=== PATIENT | male | born 1990 | race Hispanic/Latino ===

== ENCOUNTER 2019-04-05 21:16 | Emergency (ER) | payer SELFPAY ==
[~2019-04-05] VITALS: Ht 160 cm; Wt 65.0 kg
[2019-04-05 22:21] LABS: HEMATOCRIT 45.8 % (39.0-50.0); HEMOGLOBIN 15.4 g/dl (14.0-18.0); IMMATURE GRANULOCYTES 0.2 % (0.0-5.0); MEAN CELL VOLUME 92.5 fL CALC (80.0-100.0); MEAN CORPUSCULAR HGB 31.1 pG CALC (26.0-32.0); MEAN CORPUSCULAR HGB CONC 33.6 g/L CALC (32.0-36.0); NEUT# 7.05 thou/uL (1.82-7.42); RED BLOOD COUNT 4.95 mill/uL (4.70-6.10); RED CELL DISTRI WIDTH 12.7 % (11.5-15.5)
[2019-04-05 22:40] LABS: ALBUMIN 4.7 g/dL (3.2-5.0); ALKALINE PHOSPHATASE 134 u/l (38-126); ANION GAP 16 (6-22 (CALC)); BILIRUBIN, TOTAL 0.4 mg/dL (0.0-1.4); BUN 13 mg/dL (9-20); BUN/CREATININE RATIO 20 (12-20 (CALC)); CARBON DIOXIDE 27 mmol/l (22-30); CHLORIDE 99 mmol/l (95-108); CREATININE 0.6 mg/dL (0.7-1.3); GFR > 60 ML/MIN (>=60 (CALC)); GFR FOR AFR.AMER. > 60 ML/MIN (>=60 (CALC)); POTASSIUM 4.1 mmol/l (3.5-5.1); SGOT/AST 29 u/l (17-59); SODIUM 137 mmol/l (137-146)
[2019-04-05 22:43] LABS: BARBITURATES NEGATIVE (NEGATIVE); COCAINE NEGATIVE (NEGATIVE); METHADONE NEGATIVE (NEGATIVE); OXCYCODONE NEGATIVE (NEGATIVE); TETRAHYDROCANNABIONOL NEGATIVE (NEGATIVE); TRICYLIC ANTIDEPRESSANTS NEGATIVE (NEGATIVE)
[2019-04-05] MEDS ORDERED: XANAX XR1 MG PO (23:38)
[2019-04-05 23:59] VITALS: BP 132/72
== END 2019-04-05 23:59 | disposition home or self-care (01) | DRG 880 ==
LOC: ED 21:16
PROVIDERS: Emergency Medicine
DX: F41.9 Anxiety disorder, unspecified (principal)